=== PATIENT | female | born 1955 | race Caucasian/White ===

== ENCOUNTER 2016-08-08 22:42 | Emergency (ER) | payer OTHER ==
[~2016-08-08] VITALS: Ht 160 cm; Wt 87.0 kg
[~2016-08-08 22:42] MED LIST: CYMB30CA PO; EPIP0.3I IM; HYDR-3535 PO; MOBI15TA PO; PRED50 PO; PROT40TA PO; VITA10007 PO; XANA1TAB2 PO; ZITH250T PO
[2016-08-08 22:49] VITALS: BP 128/88; PULSE 111; RESP 20; TEMP 97.3; O2SAT 100
[2016-08-08 23:17] VITALS: BP 127/93; PULSE 96; RESP 20; TEMP 97.3; O2SAT 98
[2016-08-08] MEDS ORDERED: BENZ100 PO (23:17)
[2016-08-08] MEDS ORDERED: SYMB80AE INH (23:17)
[2016-08-08] MEDS ORDERED: VENTAER INH (23:17)
[2016-08-08] MEDS ORDERED: PRED10 PO (23:17)
--- NOTE | 2016-08-08 23:38 | PD ---
HPI Chief Complaint: Respiratory Symptoms Time Seen by Provider: 23:15 Travel History International Travel<30 days: No Contact w/Intl Traveler<30days: No Traveled to known affect area: No History of Present Illness HPI The patient is a 61-year-old female who came in for chest pain which he states is constant and burning like fire from her throat to her left chest. She states she has been short of breath since May and worse in the last 2 hours. She states it hurts when she coughs. She states she has nausea, diaphoresis and but no radiation of pain. She is followed by Dr. 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 Rocha is her primary care physician in [place]. She does not get oxygen at home. She has had a portion of her right lung removed back in 2007 because of non-small cell lung cancer. The patient has a history of anxiety and depression and is on Xanax and Cymbalta. She also has a nebulizer machine at home but she ran out of her albuterol. PFSH Past Medical History Hx Anticoagulant Therapy: No Asthma: Yes Anxiety: Yes Depression: Yes Heart Rhythm Problems: No Cancer: Yes (LUNG in remission) Cardiac Catheterization: No Cardiovascular Problems: Yes High Cholesterol: No Chemotherapy: Yes (LUNG CA) Congestive Heart Failure: No COPD: Yes Diabetes: No Diminished Hearing: No Endocrine: No Gastrointestinal Disorders: Yes (IBS,nelsy fundi) Genitourinary: No Heparin Induced Thrombocytopen: No Hypertension: No Implanted Vascular Access Dvce: No Musculoskeletal: Yes Neurologic: Yes (neuropathy) Psychiatric: Yes Reproductive: No Respiratory: Yes (LUNG CA, COPD) Radiation Therapy: Yes Tetanus Vaccination: Unknown Influenza Vaccination: Yes ?: Not Menopausal: Yes Past Surgical History Abdominal Surgery: Yes (HIATAL HERNIA REPAIR) Cholecystectomy: Yes Coronary Artery Bypass Graft: No Hysterectomy: Yes Neurologic Surgery: Yes (LAMINECTOMY) Thoracic Surgery: Yes (R LOWER LOBECTOMY) Other Surgery: Yes Family History Family Myocardial Infarction: Yes (MOTHER 1 YEAR AGO ) Social History Alcohol Use: Yes (RARELY) Tobacco Use: No Substance Use: No Allergies-Medications (Allergen,Severity, Reaction): Coded Allergies: Avelox (Verified Allergy, Severe, Anaphylaxis, 08/08/16) Dilaudid (Verified Allergy, Severe, 08/08/16) Lyrica (Verified Allergy, Severe, 08/08/16) Sulfa (Verified Adverse Reaction, Intermediate, 08/08/16) Tetracycline (Verified Adverse Reaction, Intermediate, 08/08/16) Penicillin (Verified Adverse Reaction, Mild, 08/08/16) yeast infection Reported Meds & Prescriptions Reported Meds & Active Scripts Active Epipen 2-Rishabh Inj (Epinephrine) 0.3 Mg/0.3 Ml Pfpen 0.3 Mg IM ONCE PRN Reported Prednisone 10 Mg Tab 10 Mg PO DAILY Tessalon Perles (Benzonatate) 100 Mg Cap 100 Mg PO TID PRN Ventolin Hfa 18 GM Inh (Albuterol Sulfate) 90 Mcg/Act Aer 2 Puff INH Q4-6H PRN Symbicort Inh (Budesonide/Formoterol Fumarate) 80-4.5 Mcg/Act Aero 2 Puff INH Q12HR Protonix (Pantoprazole Sodium) 40 Mg Tab 40 Mg PO DAILY Mobic (Meloxicam) 15 Mg Tab 15 Mg PO DAILY Lortab (Hydrocodone-Acetaminophen) 10-325 Mg Tab 1 Tab PO Q4H PRN Cymbalta DR (Duloxetine HCl) 30 Mg Capdr 30 Mg PO BID Vitamin C (Ascorbic Acid) 1,000 Mg Tab 1,000 Mg PO DAILY Xanax (Alprazolam) 1 Mg Tab 1 Mg PO Q6H PRN Review of Systems Except as stated in HPI: all other systems reviewed are Neg Physical Exam Narrative GENERAL: The patient is alert, extremely argumentative, oriented 3, anxious in slight respiratory distress. Her vital signs show heart rate of 111 with oximetry 100% and blood pressure 128/88 and temperature 97.3. The patient argued about virtually all of these vital signs and said she had a fever. Oximetry is lower. The patient very quickly left the emergency department AMA day stating this was an unprofessional environment. SKIN: Warm and dry. HEAD: Atraumatic. Normocephalic. EYES: Pupils equal and round. No scleral icterus. No injection or drainage. ENT: No nasal bleeding or discharge. Mucous membranes pink and moist. NECK: Trachea midline. No JVD. CARDIOVASCULAR: Regular rate and rhythm. No murmur appreciated. RESPIRATORY: No accessory muscle use. Clear to auscultation. Breath sounds equal bilaterally. GASTROINTESTINAL: Abdomen soft, non-tender, nondistended. Hepatic and splenic margins not palpable. MUSCULOSKELETAL: No obvious deformities. No clubbing. No cyanosis. No edema. NEUROLOGICAL: Awake and alert. No obvious cranial nerve deficits. Motor grossly within normal limits. Normal speech. PSYCHIATRIC: Appropriate mood and affect; insight and judgment normal. Data Data Last Documented VS Vital Signs Date Time Temp Pulse Resp B/P Pulse Ox O2 Delivery O2 Flow Rate FiO2 08/08/16 23:23 98 20 98 Room Air 08/08/16 23:17 97.3 127/93 MDM Medical Decision Making Medical Screen Exam Complete: Yes Emergency Medical Condition: Yes Medical Record Reviewed: Yes Differential Diagnosis Anxiety hyperventilation, pulmonary embolus, pneumonia, bronchitis, hypoxemia Narrative Course The patient quickly left the emergency department AMA. It is very possible that the use of from, particularly oximeter reading, oriented and cured. Her intent was to get a chest x-ray, blood gases and blood work including cardiac enzymes. This was explained to the patient but she left against medical payment poster nevertheless. Disposition: 07 AGAINST MEDICAL ADVICE Condition: Stable Ja Campoverde MD Aug 08, 2016 23:38
== END 2016-08-08 23:39 | disposition left against medical advice (07) ==
LOC: PHED 22:42
DX: R07.9 Chest pain, unspecified (principal); R05 Cough; J44.9 Chronic obstructive pulmonary disease, unspecified; J45.909 Unspecified asthma, uncomplicated; Z85.118 Personal history of other malignant neoplasm of bronchus and lung
CPT/HCPCS: 99284

== ENCOUNTER 2017-08-18 15:44 | Emergency (ER) | payer OTHER ==
[~2017-08-18] VITALS: Ht 160 cm; Wt 81.1 kg
[~2017-08-18 15:44] MED LIST changes: +BENZ100 PO; +PRED10 PO; -PRED50 PO; +SYMB80AE INH; +VENTAER INH; -ZITH250T PO
[2017-08-18 15:47] VITALS: BP 119/80; PULSE 103; RESP 18; TEMP 97.7; O2SAT 98
[2017-08-18] MEDS ORDERED: HYDR-3583 PO (16:10)
[2017-08-18] MEDS ORDERED: SYMB80AE INH (16:10)
[2017-08-18] MEDS ORDERED: PROZ40CA PO (16:11)
--- NOTE | 2017-08-18 16:31 | PD ---
HPI Chief Complaint: Injury Time Seen by Provider: 16:11 Travel History International Travel<30 days: No Contact w/Intl Traveler<30days: No Traveled to known affect area: No History of Present Illness HPI This is a 62-year-old female here with left wrist and hand pain after she had mechanical fall from a standing position. She reports she was attempting to step over a baby gait when she fell forward onto an outstretched hand. She denies paresthesia or weakness of the extremity. Symptom severity is moderate. Pain with range of motion is slightly relieved with rest. She denies head injury or loss consciousness. Patient is not anticoagulated. PFSH Past Medical History Hx Anticoagulant Therapy: No Asthma: Yes Anxiety: Yes Depression: Yes Heart Rhythm Problems: No Cancer: Yes (LUNG in remission) Cardiac Catheterization: No Cardiovascular Problems: Yes High Cholesterol: No Chemotherapy: Yes (LUNG CA) Congestive Heart Failure: No COPD: Yes Diabetes: No Diminished Hearing: No Endocrine: No Gastrointestinal Disorders: Yes (IBS,nelsy fundi) Genitourinary: No Heparin Induced Thrombocytopen: No Hypertension: No Implanted Vascular Access Dvce: No Musculoskeletal: Yes Neurologic: Yes (neuropathy) Psychiatric: Yes Reproductive: No Respiratory: Yes (LUNG CA, COPD) Radiation Therapy: Yes Tetanus Vaccination: Unknown ?: Not Menopausal: Yes Past Surgical History Abdominal Surgery: Yes (HIATAL HERNIA REPAIR) Cholecystectomy: Yes Coronary Artery Bypass Graft: No Hysterectomy: Yes Neurologic Surgery: Yes (LAMINECTOMY) Thoracic Surgery: Yes (R LOWER LOBECTOMY) Other Surgery: Yes Family History Family Myocardial Infarction: Yes (MOTHER 1 YEAR AGO ) Social History Alcohol Use: Yes (RARELY) Tobacco Use: No Substance Use: No Allergies-Medications (Allergen,Severity, Reaction): Coded Allergies: hydromorphone (Unverified Allergy, Severe, 08/18/17) moxifloxacin (Unverified Allergy, Severe, Anaphylaxis, 08/18/17) pregabalin (Unverified Allergy, Severe, 08/18/17) Sulfa (Sulfonamide Antibiotics) (Unverified Adverse Reaction, Intermediate , 08/18/17) doxycycline (Unverified Adverse Reaction, Intermediate, 08/18/17) minocycline (Unverified Adverse Reaction, Intermediate, 08/18/17) tigecycline (Unverified Adverse Reaction, Intermediate, Anaphylaxis, ) penicillin G (Unverified Adverse Reaction, Mild, 08/18/17) yeast infection Reported Meds & Prescriptions Reported Meds & Active Scripts Active Reported Prozac (Fluoxetine HCl) 40 Mg Cap 40 Mg PO DAILY Hydrocodone-Acetaminophen 10-325 mg Tab 1 Tab PO Q4H PRN Symbicort Inh (Budesonide/Formoterol Fumarate) 80-4.5 Mcg/Act Aero 2 Puff INH DAILY Ventolin Hfa 18 GM Inh (Albuterol Sulfate) 90 Mcg/Act Aer 2 Puff INH Q4-6H PRN Protonix (Pantoprazole Sodium) 40 Mg Tab 40 Mg PO DAILY Mobic (Meloxicam) 15 Mg Tab 15 Mg PO DAILY Xanax (Alprazolam) 1 Mg Tab 1 Mg PO Q6H PRN Review of Systems Except as stated in HPI: all other systems reviewed are Neg General / Constitutional: No: Fever Eyes: No: Visual changes HENT: No: Headaches Cardiovascular: No: Chest Pain or Discomfort Respiratory: No: Shortness of Breath Gastrointestinal: No: Abdominal Pain Genitourinary: No: Dysuria Physical Exam Narrative GENERAL: Alert and well-appearing 62-year-old female. SKIN: Warm and dry. HEAD: Normocephalic. Atraumatic EYES: The pulse equal, round, reactive to light. EOMs intact. No injection or drainage. NECK: Supple, trachea midline. No cervical midline tenderness. CARDIOVASCULAR: Regular rate and rhythm without murmurs, gallops, or rubs. No chest wall tenderness RESPIRATORY: Breath sounds equal bilaterally. No accessory muscle use. GASTROINTESTINAL: Abdomen soft, non-tender, nondistended. MUSCULOSKELETAL: No cyanosis. Left upper extremity: Notable swelling and tenderness to the dorsal aspect of the wrist. No deformity. Tenderness over the first metacarpal. Patient is able to flex and extend the wrist and all fingers. Normal sensation. Brisk cap refill. BACK: Nontender without obvious deformity. No CVA tenderness. Data Data Last Documented VS Vital Signs Date Time Temp Pulse Resp B/P (MAP) Pulse Ox O2 Delivery O2 Flow Rate FiO2 08/18/17 15:47 97.7 103 18 119/80 (93) 98 Orders Orders Hand, Complete ([id number]) (08/18/17 ) Wrist, Complete ([id number]) (08/18/17 ) MDM Medical Decision Making Medical Screen Exam Complete: Yes Emergency Medical Condition: Yes Differential Diagnosis Wrist fracture, wrist sprain, metacarpal fracture, contusion Narrative Course This 62-year-old female here with left wrist pain after she had a mechanical fall from a standing position. Extremities neurovascularly intact. X-ray is negative for fracture. She'll be treated for wrist sprain/contusion. She is to follow-up with her primary doctor. Diagnosis Primary Impression: Wrist sprain Qualified Codes: S63.502A - Unspecified sprain of left wrist, initial encounter Additional Impression: Contusion Qualified Codes: S60.212A - Contusion of left wrist, initial encounter Referrals: Primary Care Physician Additional Instructions: Ice and elevate the extremity. Splint as directed. Tylenol and ibuprofen as needed for pain Disposition: 01 DISCHARGE HOME Condition: Stable Mary Chen Aug 18, 2017 16:31
--- NOTE | 2017-08-18 16:44 | RADRPT ---
EXAM DATE/TIME: 08/18/2017 16:30 [facility] COMPARISON: No previous studies available for comparison. INDICATIONS : Left wrist pain post fall. Patient tripped over a baby gate. MEDICAL HISTORY : None. SURGICAL HISTORY : None. ENCOUNTER: Initial ACUITY: 1 day PAIN SCORE: 8/10 LOCATION: Left wrist. FINDINGS: Three view examination of the left wrist demonstrates no soft tissue swelling, dislocation, or fractu re. The carpal bones are in normal alignment. The joint spaces are maintained. Bony mineralization is normal. CONCLUSION: Unremarkable examination of the left wrist. Brandon Dill Jr., MD on August 18, 2017 at 16:41 Board Certified Radiologist. This report was verified electronically.
--- NOTE | 2017-08-18 16:48 | RADRPT ---
EXAM DATE/TIME: 08/18/2017 16:30 [facility] COMPARISON: No previous studies available for comparison. INDICATIONS : Left hand pain post fall. Patient tripped over a baby gate. MEDICAL HISTORY : None. SURGICAL HISTORY : None. ENCOUNTER: Initial ACUITY: 1 day PAIN SCORE: 5/10 LOCATION: Left hand. FINDINGS: Three view examination of the left hand demonstrates no soft tissue swelling, dislocation, or fractur e. The carpal bones appear intact. Joint space narrowing with periarticular sclerotic change involv ing the DIP joints of the second and third fingers as well as the first carpal metacarpal joint. Bony mineralization is normal. CONCLUSION: No acute abnormality. Osteoarthritis. Brandon Dill Jr., MD on August 18, 2017 at 16:42 Board Certified Radiologist. This report was verified electronically.
== END 2017-08-18 17:08 | disposition home or self-care (01) ==
LOC: PHEFT 15:44
DX: S63.502A Unspecified sprain of left wrist, initial encounter (principal); S60.212A Contusion of left wrist, initial encounter; W01.0XXA Fall on same level from slipping, tripping and stumbling without subsequent striking against object, initial encounter; J45.909 Unspecified asthma, uncomplicated; J44.9 Chronic obstructive pulmonary disease, unspecified; Z85.118 Personal history of other malignant neoplasm of bronchus and lung
CPT/HCPCS: 73110; 73130; 99283; L3908